=== PATIENT | male | born 1995 ===

== ENCOUNTER 2025-06-10 08:09 | Emergency (ER) | payer OTHER ==
[~2025-06-10] VITALS: Ht 193 cm; Wt 113.4 kg
== END 2025-06-10 09:49 | disposition home or self-care (01) ==
LOC: ER 08:09
DX: S52.124A Nondisplaced fracture of head of right radius, initial encounter for closed fracture (principal); X50.1XXA Overexertion from prolonged static or awkward postures, initial encounter; Y93.51 Activity, roller skating (inline) and skateboarding
CPT/HCPCS: 73080; 73090; 99283-25